=== PATIENT | female | born 1955 | race Caucasian/White ===

== ENCOUNTER 2021-04-14 13:08 | Inpatient (IN) | payer MEDICAID ==
[~2021-04-14] VITALS: Ht 162.6 cm; Wt 66.7 kg
--- NOTE | 2021-04-14 13:34 | NUR ---
DR TANG AT THE BEDSIDE
--- NOTE | 2021-04-14 14:06 | NUR ---
THE PATIENT IS TAKEN TO CT VIA RNEY
--- NOTE | 2021-04-14 14:28 | NUR ---
IV LINE IS ESTABLISHED AND SALINE LOCKED
[2021-04-14 15:42] LABS: BASOPHILS # (AUTO) 0.1 K/uL (0.0-0.2); EOSINOPHILS % (AUTO) 3.4 % (0.0-6.0); HEMATOCRIT 52 % (33-45); HEMOGLOBIN 17.3 g/dL (11.5-14.8); LYMPHOCYTES # (AUTO) 1.8 K/uL (0.8-4.8); LYMPHOCYTES % (AUTO) 23.8 % (20.0-44.0); MEAN CORPUSCULAR HGB CONC 34 g/dl (31.0-36.0); MEAN CORPUSCULAR VOLUME 80 fL (82-100); MONOCYTES # (AUTO) 0.6 K/uL (0.1-1.30); MONOCYTES % (AUTO) 8.2 % (2.0-12.0); NEUTROPHILS # (AUTO) 4.8 K/uL (1.8-8.9); NEUTROPHILS % (AUTO) 63.6 % (43.0-81.0); PLATELET COUNT (AUTO) 312 K/uL (150-450); RED BLOOD CELL COUNT(AUTO) 6.48 MIL/uL (4.0-5.2); WHITE BLOOD COUNT (AUTO) 7.6 K/uL (4.3-11.0)
[2021-04-14 15:57] LABS: CALCIUM, SERUM 10.3 mg/dL (8.5-10.1); CARBON DIOXIDE 21 mmol/L (21-32); CHLORIDE 97 mmol/L (98-107); CREATININE 0.9 mg/dL (0.6-1.3); GLUCOSE 88 mg/dL (74-106); POTASSIUM 3.9 mmol/L (3.5-5.1); SODIUM SERUM 133 mmol/L (136-145); UREA NITROGEN, BLOOD 18 mg/dL (7-18)
[2021-04-14 16:10] LABS: ALANINE AMINOTRANSFERASE 23 U/L (12-78); ALBUMIN 4.2 g/dL (3.4-5.0); ALKALINE PHOSPHATASE 95 U/L (46-116); ASPARTATE AMINOTRANSFERASE 29 U/L (15-37); BILIRUBIN,DIRECT 0.1 mg/dL (0.0-0.2); BILIRUBIN,TOTAL 0.5 mg/dL (0.2-1.0); TOTAL PROTEIN, SERUM 9.1 g/dL (6.4-8.2)
--- NOTE | 2021-04-14 16:20 | NUR ---
NOTIFIED NURSING SUP REGARDING PT BED
[2021-04-14 16:26] LABS: ACETAMINOPHEN < 0 ug/ml (10-30); ALCOHOL, BLOOD < 3 mg/dL (0-0)
[2021-04-14] MEDS ORDERED: MORPHINE SULFATE INJ 2 MG/ML DISP.SYRIN IV PRN (16:30)
[2021-04-14] MEDS ORDERED: Z GUARD REMEDY 4 OZ OINT TP PRN (16:30)
[2021-04-14] MEDS ORDERED: ONDANSETRON HCL/PF 4 MG/2 ML VIAL IVP PRN (16:30)
[2021-04-14] MEDS ORDERED: ACETAMINOPHEN 325 MG TABLET PO PRN (16:30)
--- NOTE | 2021-04-14 16:45 | NUR ---
COVID ANTIGEN SWAB DONE AND SENT TO THE LAB
[2021-04-14 17:27] LABS: SERUM AMMONIA < 10 umol/L (11-32)
[2021-04-14] MEDS: ENOXAPARIN SODIUM 40 MG/0.4 ML DISP.SYRIN SQ SCH (17:30)
[2021-04-14] MEDS ORDERED: CEFTRIAXONE 1GM BAG (ER ONLY) 0 ML IV ONE (17:49)
[2021-04-14] MEDS ORDERED: CEFTRIAXONE 1 G in IV D5W 50 ML IV SCH (18:00)
[2021-04-14] MEDS: IV NS 0.9% 1,000 ML IV PRN (18:41)
[2021-04-14] MEDS ORDERED: ENOXAPARIN SODIUM 40 MG/0.4 ML DISP.SYRIN SQ ONE (18:43)
--- NOTE | 2021-04-14 19:06 | NUR ---
report given to nurse Puga for mustapha
[2021-04-14 19:23] LABS: BILIRUBIN,URINE MODERATE (NEGATIVE); COLOR,URINE YELLOW (YELLOW); LEUKOCYTE ESTERASE ,URINE NEGATIVE (NEGATIVE); NITRITE, URINE NEGATIVE (NEGATIVE); PROTEIN,URINE NEGATIVE (NEGATIVE); UGLUCOSE NEGATIVE (NEGATIVE); UROBILINOGEN,URINE 0.2 EU/dL (0.2)
--- NOTE | 2021-04-14 20:16 | NUR ---
PT RESTING WTIH EYES CLOSED, EASILY AROUSABLE
--- NOTE | 2021-04-14 21:14 | NUR ---
RM 327-1
--- NOTE | 2021-04-14 22:11 | NUR ---
REPORT GIVEN TO HOMA MARIA
--- NOTE | 2021-04-14 22:40 | NUR ---
TELE TRANSFER RN NOTE (RECEIVING) PATIENT RECEIVED FROM ER BY MIRNA. PATIENT AWAKE. A/OX2. NO S/S OF DISTRESS, BREATHING WNL AND UNLABORED. RW IV #20 PATENT. TELE MONITOR APPLIED AND REVEALS SR 70. PATIENT WAS ORIENTED TO THE UNIT, GIVEN AND INSTRUCTED GAS SYSTEMS WORKER RIVAS USE. VS WNL. NO PAIN NOTED. PATIENT IS A POOR HISTORIAN AND IS A/OX2; SHE RESPONDS TO MY ASSESSMENT QUESTIONS GIVING ANSWERS THAT CONTRADICT ER REPORT. CHARGE NOTIFIED. PATIENT IS OTHERWISE IN A PLEASANT MOOD W/ NO APPARENT DIFFICULTIES OR ISSUES. MINOR SCABS AND A BRUISE NOTED IN INTERVENTION, PICTURES TAKEN AND PLACED IN CHART. SAFETY MEASURES IN PLACE: BED AT LOWEST POSITION, RAILS UP X2, CALL RIVAS WITHIN REACH. WILL CONTINUE TO MONITOR PATIENT.
[2021-04-15 04:00] VITALS: BP 153/98
--- NOTE | 2021-04-15 06:28 | NUR ---
SIGN SHOP SUPERVISOR CLOSING NOTE PATIENT ASLEEP IN BED. A/OX2. NO S/S OF DISTRESS, BREATHING SYMMETRICAL. RW #20 INTACT AND PATENT, W/ NS 75ML/HR. TELE MONITOR REVEALS SR 63. SAFETY MEASURES IN PLACE: BED AT LOWEST POSITION, RAILS UP X2, CALL RIVAS WITHIN REACH. WILL ENDORSE TO NEXT SHIFT FOR KOLE.
[2021-04-15 07:22] LABS: BASOPHILS # (AUTO) 0.1 K/uL (0.0-0.2); BASOPHILS % (AUTO) 1.1 % (0.0-2.0); EOSINOPHILS % (AUTO) 5.9 % (0.0-6.0); HEMATOCRIT 47 % (33-45); HEMOGLOBIN 15.6 g/dL (11.5-14.8); LYMPHOCYTES # (AUTO) 1.5 K/uL (0.8-4.8); LYMPHOCYTES % (AUTO) 25.7 % (20.0-44.0); MEAN CORPUSCULAR HGB CONC 33 g/dl (31.0-36.0); MEAN CORPUSCULAR VOLUME 80 fL (82-100); MONOCYTES # (AUTO) 0.6 K/uL (0.1-1.30); MONOCYTES % (AUTO) 10.2 % (2.0-12.0); NEUTROPHILS # (AUTO) 3.4 K/uL (1.8-8.9); NEUTROPHILS % (AUTO) 57.1 % (43.0-81.0); PLATELET COUNT (AUTO) 288 K/uL (150-450); RED BLOOD CELL COUNT(AUTO) 5.93 MIL/uL (4.0-5.2); WHITE BLOOD COUNT (AUTO) 5.9 K/uL (4.3-11.0)
--- NOTE | 2021-04-15 07:27 | NUR ---
CAR DUMPER OPERATOR OPENING NOTES PT RECEIVED AWAKE IN BED IN NO ACUTE SIGNS OF DISTRESS. A/O X2, ABLE TO MAKE NEEDS KNOWN. PT SEEMS CONFUSED AND FORGETFUL, DENIES PAIN OR ANY DISCOMFORTS AT THIS TIME. ON ROOM AIR, TOLERATING WELL, BREATHING EVEN AND UNLABORED. IV ACCESS ON RIGHT WRIST #20G INTACT WITH IVF OF NS @ 75ML/HR INFUSING WELL, NO S/SX OF INFILTRATION AT SITE NOTED. TELE-MONITOR SHOWS NSR WITH HR ON THE 60'S AT THIS TIME, NO C/O CARDIAC DISTRESS VOICED. SAFETY MEASURES IN PLACED: BED IN LOWEST LOCKED POSITION WITH SIDE-RAILS UP X2. CALL LIGHT W/IN EASY REACH. WILL CONTINUE TO MONITOR PT.
[2021-04-15 08:00] VITALS: BP 163/97
[2021-04-15 08:17] LABS: ALBUMIN 3.5 g/dL (3.4-5.0); BILIRUBIN,TOTAL 0.4 mg/dL (0.2-1.0); CALCIUM, SERUM 9.4 mg/dL (8.5-10.1); CREATININE 0.8 mg/dL (0.6-1.3); MAGNESIUM 2.5 mg/dL (1.8-2.4); PHOSPHORUS 4.2 mg/dL (2.5-4.9); POTASSIUM 4.2 mmol/L (3.5-5.1); TOTAL PROTEIN, SERUM 7.9 g/dL (6.4-8.2)
[2021-04-15] MEDS: hydrALAZINE HCL IV 20 MG VIAL IV PRN (10:07)
--- NOTE | 2021-04-15 11:09 | NUR ---
RN NOTES PT FOR MRI OF BRAIN WITH OR WITHOUT CONTRAST. TELEPHONE CONSENT AND PT HX PROVIDED BY PT'S SISTER NAMED JILLIAN HOWELL AND CONFIRMED BY ANOTHER RN, JAVIER.
[2021-04-15] MEDS: AMLODIPINE BESYLATE 5 MG TABLET PO SCH (12:50)
--- NOTE | 2021-04-15 14:50 | NUR ---
SS consult: SS Consult requested for pt. living alone and needs access to resources. Pt. is a 66-year-old female who was brought in due to altered mental status. Upon SS consult, pt. is alert and oriented x2 (time and self). Pt. presents with a depressed mood and low speech. Pt. appears confused and provides poor insight. Pt. appears unkempt and has bruising on the left eye. SW explored pt.s social support. Pt. stated she had siblings but did not provide information. SW explored pt.s living situation. Pt. stated she resides alone at [address] [place] [address]. Pt. stated she receives no caregiving services. SW explored if pt. is ambulatory. Pt. stated she is able to walk independently. SW explored pt.s financial situation. Pt. stated she does not receive SSI, Disability or General relief. SW explored pt.s substance abuse hx. Pt. stated that she has no history of substance use. SW explored pt. 's ADLs. Pt. stated she is independent with her ADLs. SW explored pt.s psychiatric diagnosis. Pt. stated she has no psychiatric diagnosis at this time. Pt. denied visual/auditory hallucinations. Pt. denied suicidal and homicidal ideation. SW offered pt. caregiving resources and pt. refused resources and referrals. JULIANN spoke with niece, Isaac Bunch ([phone]). Isaac ([phone]) stated that pt. lives alone and does not have a caregiver. Isaac ([phone]) stated that pt.s legal POA is Mariluz Donnelly ([phone]) and medical POA is Tammy Hidalgo ([phone]). Isaac ([phone]) stated that pt. Has been confused for six-eight months. Isaac ([phone]) stated that she found pt. in her home with a black eye but pt. could not remember what happened. Isaac ([phone]) stated that pt. refuses medical care and caregiving services. JULIANN filed an APS report due to self-neglect. APS Intake Number #[id number]. Family requested caregiving resources and SW emailed resources to isaac at [email or web address] Plan: Per Niece patient may return to home [[address] [place] [address]] with support services. However, PT are recommending SNF placement. CM to follow up. ABUSE PREVENTION: ELDER ABUSE HOTLINE (11/10) ADULT PROTECTIVE SERVICES HOTLINE LONG-TERM CARE [facility] Region AREA ON AGING (HOTLINE) ADULT DAY HEALTH CARE CARE CENTERS: Private pay or Medi-husam funded adult day care [facility] Day Health Care Care [facility] , [facility] , [facility] Adult Care Center , [facility] Day Health Care , [facility] Adult Day [facility] , [facility] Adult Daycare Center , [place] ONE Generation [place] , [facility] , [place] ALZHEIMERS DISEASE/DEMENTIA: Alzheimers Association Helpline [facility] www.alz.org/Sharp [facility] Department of Aging www.lacity.org Family Caregiver L[place]y www.caregiver.org [place] Caregiver Resources Center/Family Support www.[facility].org CANCER RESOURCES: [place] Cancer Society www.cancer.org Cancer Support Community www.CancerSupportVvsb.org: CancerCare www.cancercare.org Selvin Dixon Cancer Support Center www.spark.org COMMUNITY HEALTH ASSOCIATIONS: AARP www.aarp.org ALS Association (ask for Jennifer) www.als.org [place] Diabetes Association www.diabetes.org [place] Heart Association www.heart.org [place] Lung Association www.lungusa.org [place] Parkinson Disease Association www.apdaparkinson.org [place] , www.redcross.org Arthritis Foundation www.arthritis.org Crohns & Colitis Foundation of [place] www.ccfa.org/chapters/losangeles National Multiple Sclerosis Society www.nationalmssociety.org Myasthenia Gravis Foundation www.myasthenia-ca.org National Stroke Association www.stroke.org CONSERVATORSHIP & GUARDIANSHIP: AARP Kassy Moreno Legal Services Center for Health Care Rights Eldercare Information and Referral Surveillance Investigator [facility]: [facility] Referral Service [facility] Legal Services Office of the Public Guardian [place] EYESIGHT DISORDER RESOURCES: [place] Macular Degeneration Foundation [facility] www.Blinkbuggygalion hospitalinstitute.org GRIEF AND BEREAVEMENT RESOURCES: The [facility] , [facility] THE HOPE Connection , [facility] Bereavement Center , [place] HEARING DISORDER RESOURCES: [place] Telephone Access Program Deaf and Disabled Telecommunications Program www.ddtp.cpuc.ca.gov HearRx Hearing Centers ([place]) [facility] Hearing Systems , [place] GLAD ([facility] Agency on Deafness) V/ TTY; Lead Warehouse Associate , Caty Joe Hearing Foundation -low income hearing aid assistance www.[facility] fayette medical centerringfoundation.org [place] Hearing Care , Trisha HELP AT HOME CAREGIVER SUPPORT: In Home Support Services (Must have Medi-Husam to be eligible) *Ask for a list of agencies that provide services to assist with care in the home. Local Senior Centers also have listings of care providers. HOME SAFETY MODIFICATIONS AND EQUIPMENT: Senior centers have additional referrals. [place] Arynga and Community Investment Dept. Handyworker Program (low income) or Visit http://hcidla.[facility].org/ctk-zxguoa-yq for more information National Seating and Mobility and/or ; Forever Active www.foreveractivemed.Rijuven Stay Home Safe www.Stayhomesafe.com LIFE ALERT RESPONSE SYSTEM: [employer] Lifeline Services 033-017-9818 www. LifeMamina Shkola Life Alert 880-193-9416 www.lifeFit with Friendsrt.Rijuven Life Station 009-492-1139 www.Articulinx Inc.ation.Rijuven Safe Return 928-323-7753 www.alz.or/safereturn Cell Phones for Seniors www.Lavaboom MEALS AND FOOD PROGRAMS: [place] Meals on Wheels [phone] [place] Meals on Wheels [phone] [facility] [phone] [place] to the Homebound [phone] K[place] to the Homebound [phone] StocktonKaser to the Homebound [phone] [facility] to the Homebound [phone] Danny Lazcano [phone] [facility] [phone] ONE Generation [phone] [facility] Health Systems [phone] [facility] [phone] Meals on Wheels [phone] For all ages: $6.85/ meal w side. Delivered M-F from 10 am-1pm. Application and payment is done over the phone. Frozen meals available for weekends. [facility] Food [facility] [phone] [facility] Assistant Professor Of Physics [phone] [facility] [phone] DarenSelect Medical [facility]- Brown bag lunches [phone] [facility] [phone] MEAL/GROCERY DELIVERY PROGRAMS: [facility] Gourmet [facility] [phone]- [facility] [phone] [facility] Magic Kitchen [phone] Moms Meals [phone] (ask Hdez for Discount Select grocery stores may provide delivery. MEDICAL INSURANCE SUPPORT SERVICES: Center for Health Care Rights [phone] Health Insurance Counseling/Advocacy Programs (HICAP)-Must have Medicare. Offers counseling for Medi-Husam eligibility [phone] Department of Public Assistant Professor Of Physics [phone] www.[facility].ca.gov Medicare [phone] www.socialsecurity.org Social Security [phone] SENIOR ACTIVITY PROGRAMS: *Contact a local senior center, adult school, recreation facility or community college for education, fitness, recreation, and social programs. Aquatic Therapy and Adapted Exercise programs through [facility] [phone] Encore at [facility] [phone] www.[facility]/encore H2U- Senior Friends [phone] [place] Senior Programs [phone] www.oasisnet.org Suddenly 65 www..com SENIOR CENTERS: [facility] [phone] [facility] CenterDanny [phone] [facility] [phone] [facility] [phone] [facility] [phone] [facility] [phone] [facility] [phone] [facility] [phone] Crystal GenerationRoberto [facility] [phone] [facility] [phone] [facility] [phone] The [facility] [phone] [facility] [phone] TRANSPORTATION: Local [facility] Centers may have applications for transportation programs and additional resources. ACCESS Services [phone] Transportation for seniors and disabled persons 7 days a week requiring 254 hr. advance reservation. Must apply and register for program elaine eligible. Táximo [phone] or [phone] Transportation for seniors and persons with ADA card/metro disabled card in the [facility]. M-F only. Must register for services. [facility]YSTAL GENERATION [phone] Serves 65 years + in conjunction with Zenogene program. Must be registered with both programs. A to B Transport [phone] Provides wheelchair/gurney van service. Adult Medical Transport [phone] Accepts [facility] with prior authorization. Care Van [phone] Provides wheelchair Transport. [facility] Wide Transportation [phone] Provides gurney service [facility] [phone] Gurney Transport. [facility] Transportation [phone] wheelchair & gurney transport D Transportation [phone] wheelchair & gurney transport [place] Non-Emergency Transport [phone] wheelchair & gurney transport [facility] Living [place] [phone] Short Term Transportation primarily for adults with disabilities on social security income. Nominal fee may apply and a reservation is required. City Cab [phone] or [phone] One Moja [phone] [place] [address] Referral Services -[phone] For additional programs & services VETERANS RESOURCES: Submissions for Aid and Attendance should be done directly to [facility] office locatd at : [address] [facility] [phone] National Caregiver Support Line [phone] [facility] Veterans Services Field Office [phone] [place] Department of [place] Affairs [phone] Pension Information [phone]
[2021-04-15] MEDS: ENOXAPARIN SODIUM 40 MG/0.4 ML DISP.SYRIN SQ SCH (15:44)
[2021-04-15 16:00] VITALS: BP 144/82
[2021-04-15] MEDS: IV NS 0.9% 1,000 ML IV PRN (16:14)
--- NOTE | 2021-04-15 18:53 | NUR ---
MANAGER CONTRACT CLOSING NOTES PT IN BED AWAKE AND WATCHING TV AT THIS TIME. A/O X2, ABLE TO MAKE NEEDS KNOWN. FORGETFUL AND CONFUSED ON AND OFF, RE-ORIENTED AND REDIRECTED. ON ROOM AIR, TOLERATING WELL, BREATHING EVEN AND UNLABORED. IV ACCESS ON RFA #22G INTACT WITH IVF OF NS @ 75ML/HR INFUSING WELL, NO S/SX OF INFILTRATION AT SITE NOTED. TELE-MONITOR SHOWS NSR WITH HR ON THE 60'S AT THIS TIME, NO C/O CARDIAC DISTRESS VOICED. ALL NEEDS AND CARE PROVIDED WELL. SAFETY MEASURES IN PLACED: BED IN LOWEST LOCKED POSITION WITH SIDE-RAILS UP X2. CALL LIGHT W/IN EASY REACH. WILL ENDORSE KOLE TO FIRE ENGINE PUMP OPERATOR NURSE..
--- NOTE | 2021-04-15 19:47 | NUR ---
JAVA J2EE APPLICATION DEVELOPER OPENING NOTE PATIENT RECEIVED IN BED AWAKE. A/OX2. NO S/S OF DISTRESS, BREATHING SYMMETRICAL. RFA #22 INTACT AND PATENT W/ NS @ 75ML/HR. TELE MONITOR REFUSED BY PATIENT, BUT I WILL ENCOURAGE PATIENT TO WEAR MONITOR TO PROMOTE HEALTH. SAFETY MEASURES IN PLACE: BED AT LOWEST POSITION, RAILS UP X2, CALL RIVAS WITHIN REACH. WILL CONTINUE TO MONITOR.
[2021-04-15 20:00] VITALS: BP 132/68
--- NOTE | 2021-04-15 20:35 | NUR ---
SUPERVISOR WHIPPED TOPPING NOTE PATIENT HAD ATTEMPTED TO GET OUT OF BED AND DISLODGED HER IV ACCESS IN THE PROCESS. PATIENT IS STABLE. IV FULLY REMOVED W/ CATH INTACT. NO ACTIVE BLEEDING FOR THE PATIENT. A NEW IV WAS PLACED RH #20. PATIENT IN STABLE CONDITION.
[2021-04-16] VITALS: BP 140/100
[2021-04-16 04:00] VITALS: BP 156/95
--- NOTE | 2021-04-16 06:34 | NUR ---
HEAD OF ART CLOSING NOTE PATIENT IN BED AWAKE. A/OX2. NO S/S OF DISTRESS, BREATHING SYMMETRICAL. RH #20 INTACT AND PATENT W/ NS 75ML/HR. TELE MONITOR REVEALS SR 75. SAFETY MEASURES IN PLACE: BED AT LOWEST POSITION, RAILS UP X2, CALL RIVAS WITHIN REACH. WILL ENDORSE TO NEXT SHIFT FOR KOLE.
--- NOTE | 2021-04-16 07:30 | NUR ---
FINAL CIGAR AND BOX EXAMINER OPENING NOTE RECEIVED PATIENT IN BED, ASLEEP. A/OX2. NO S/S OF DISTRESS, BREATHING SYMMETRICAL. RFA #22 INTACT AND PATENT W/ NS @ 75ML/HR. ON TELE MONITOR SHOWING SR HR AT 70'S. SAFETY MEASURES IN PLACE: BED AT LOWEST POSITION, RAILS UP X2, CALL RIVAS WITHIN REACH. WILL CONTINUE TO MONITOR ACCORDINGLY.
[2021-04-16 08:00] VITALS: BP 172/100
[2021-04-16] MEDS: AMLODIPINE BESYLATE 5 MG TABLET PO SCH (09:09)
--- NOTE | 2021-04-16 09:40 | NUR ---
RN NOTES PATIENT REFUSED MRI. DR. JEREMY MONTESINOS AWARE. RISK DISCUSSED WITH PATIENT SEVERAL TIMES. STILL REFUSED.
[2021-04-16] MEDS: IV NS 0.9% 1,000 ML IV PRN (15:36)
--- NOTE | 2021-04-16 15:48 | NUR ---
RN NOTES PATIENT PULLED OUT IV LINE. REINSERTED AN IV PAUL ON PATIENT'S LEFT AC USING IV CATHETER G #22. PATENT NAD FLUSHES WELL. IV FLUID OF NS @ 75 CC/HR RESUMED, INFUSING WELL. NO S/SX OF INFILTRATION NOTED.
[2021-04-16] MEDS: ENOXAPARIN SODIUM 40 MG/0.4 ML DISP.SYRIN SQ SCH (16:33)
--- NOTE | 2021-04-16 19:01 | NUR ---
TRUCK DRIVER'S OFFSIDER CLOSING NOTE PATIENT IN BED, ASLEEP. A/OX2. NO S/S OF DISTRESS, BREATHING SYMMETRICAL. RFA #22 INTACT AND PATENT W/ NS @ 75ML/HR. ON TELE MONITOR SHOWING SR HR AT 70'S. SAFETY MEASURES IN PLACE: BED AT LOWEST POSITION, RAILS UP X2, CALL RIVAS WITHIN REACH. ALL NEEDS ATTENDED AND MET. DUE MEDS GIVEN ORDERED. WILL ENDORSE TO ONCOMING SHIFT FOR KOLE.
--- NOTE | 2021-04-16 19:20 | NUR ---
TRACK LAYING MACHINE OPERATOR OPENING NOTE RECEIVED PATIENT IN BED, AWAKE, ALERT AND ORIENTED X2, WITH EPISODES OF FORGETFULNESS. REORIENTATION PROVIDED. NO S/SX OF ACUTE DISTRESS, NO SOB NOTED. BREATHING IS EVEN AND UNLABORED. IV ACCESS ON LAC G#22 INTACT AND PATENT WITH NS @ 75ML/HR. ON TELE MONITOR SHOWING SR HR AT 70'S. SAFETY MEASURES IN PLACE: BED AT LOWEST POSITION, RAILS UP X2, CALL RIVAS WITHIN REACH. WILL CONTINUE TO MONITOR ACCORDINGLY.
[2021-04-16 20:00] VITALS: BP 163/78
[2021-04-16] MEDS: hydrALAZINE HCL IV 20 MG VIAL IV PRN (20:22)
[2021-04-16 21:00] VITALS: BP 150/80
[2021-04-17] VITALS: BP 158/84
--- NOTE | 2021-04-17 02:01 | NUR ---
FREIGHT WEIGHER NOTE PATIENT IS RESTLESS AND PULLED OUT HER IV LINE. PATIENT IS STABLE. IV FULLY REMOVED. NO ACTIVE BLEEDING FOR THE PATIENT. A NEW IV WAS PLACED LEFT HAND #20. PATIENT IN STABLE CONDITION.
[2021-04-17 04:00] VITALS: BP 135/69
--- NOTE | 2021-04-17 07:14 | NUR ---
VETERINARY LABORATORY TECHNICIAN OPENING NOTE RECEIVED PATIENT IN BED, AWAKE. A/OX2. NO S/S OF DISTRESS, BREATHING SYMMETRICAL. RFA #22 INTACT AND PATENT W/ NS @ 75ML/HR. REFUSED TELE MONITOR. NO SAFETY MEASURES IN PLACE: BED AT LOWEST POSITION, RAILS UP X2, CALL RIVAS WITHIN REACH. WILL CONTINUE TO MONITOR ACCORDINGLY.
[2021-04-17 08:00] VITALS: BP 165/89
[2021-04-17 08:46] VITALS: BP 165/89
[2021-04-17] MEDS ORDERED: AMLODIPINE BESYLATE 5 MG TABLET PO SCH (09:00)
[2021-04-17] MEDS ORDERED: METF-867 PO (11:14)
[2021-04-17] MEDS ORDERED: AMLO-212 PO (11:14)
--- NOTE | 2021-04-17 15:43 | NUR ---
RN NOTES PATIENT IS CLEARED FOR DISCHARGE. INFORMED PATIENT'S SISTER JILLIAN VIA PHONE CALL. PATIENT'S SISTER IS ASKING IF WE CAN SET UP HOME HEALTH FOR THE PATIENT UPON DISCHARGE. INFORMED CASE MANAGEMENT AND SPOKE TO CRISTOFER REGARDING PATIENT'S SISTER CONCERN. PER CASE MANAGEMENT (CRISTOFER) SHE WILL CALL PATIENT'S SISTER REGARDING THE CONCERN.
[2021-04-17] MEDS: ENOXAPARIN SODIUM 40 MG/0.4 ML DISP.SYRIN SQ SCH (16:17)
--- NOTE | 2021-04-17 19:00 | NUR ---
RN CLOSING NOTE PATIENT IN BED, AWAKE. A/OX2. NO S/S OF DISTRESS, BREATHING SYMMETRICAL. RFA #22 INTACT AND PATENT W/ NS @ 75ML/HR. REFUSED TELE MONITOR. NO SAFETY MEASURES IN PLACE: BED AT LOWEST POSITION, RAILS UP X2, CALL RIVAS WITHIN REACH. FOR DISCHARGE, AWAITING FOR FAMILY TO ORDER PROCESSING CLERK PATIENT. ENDORSED TO CANE FLUME CHUTE OPERATOR NURSE FOR KOLE.
--- NOTE | 2021-04-17 19:50 | NUR ---
DISCHARGED IN TO CARE OF HER SISTER PAPERS SIGNED PATIENT ABLE TO WALK TO THE W/C TAKEN TO PRIVATE CAR H/L OUT
== END 2021-04-17 19:50 | disposition home or self-care (01) | DRG 422 ==
LOC: ER 13:08 → TRANSITION 18:12 → TELE 21:22
PROVIDERS: ADMIT Internal Medicine; ATTEND Internal Medicine
DX: E86.0 Dehydration (principal); G93.41 Metabolic encephalopathy; F03.90 Unspecified dementia, unspecified severity, without behavioral disturbance, psychotic disturbance, mood disturbance, and anxiety; I10 Essential (primary) hypertension; Z20.822 Contact with and (suspected) exposure to COVID-19; Z86.73 Personal history of transient ischemic attack (TIA), and cerebral infarction without residual deficits; E11.9 Type 2 diabetes mellitus without complications; S00.11XA Contusion of right eyelid and periocular area, initial encounter; Z79.84 Long term (current) use of oral hypoglycemic drugs; W19.XXXA Unspecified fall, initial encounter; Y93.9 Activity, unspecified; Y92.009 Unspecified place in unspecified non-institutional (private) residence as the place of occurrence of the external cause
CPT/HCPCS: 36415; 70450-TC; 71045-TC; 80048-TC; 80053-TC; 80076-TC; 82140-TC; 82550-TC; 82962-TC; 83605-TC; 83735-TC; 84100-TC; 84443-TC; 84484-TC; 85025-TC; 85730-TC; 87040-TC; 87081-TC; 87086-TC; 95819-TC; 97110-TC; 97112-TC; 97116-TC; 97530-TC; C9803; G0378; G0480; J0360; J0696; J1650; J7030; J7060